=== PATIENT | male | born 1950 | race Two or more races ===

== ENCOUNTER 2016-05-17 05:52 | Inpatient (IN) | payer MEDICARE, OTHER ==
[~2016-05-17] VITALS: Ht 152.4 cm; Wt 114.3 kg
[~2016-05-17 05:52] MED LIST: BP PILL
[2016-05-17] MEDS ORDERED: KETOROLAC TROMETHAMINE INJ 30 MG/ML VIAL ONE (06:06)
[2016-05-17] MEDS ORDERED: BUPIVACAINE MPF 0.5% W/EPI INJ 30 ML VIAL ONE (06:06)
[2016-05-17] MEDS ORDERED: BACITRACIN 50000 UNITS/VIAL ONE (06:06)
[2016-05-17] MEDS ORDERED: TRAM50TA2 PO (06:44)
[2016-05-17] MEDS ORDERED: HYDR-548 PO (06:44)
[2016-05-17 07:51] VITALS: BP 127/91
[2016-05-17] MEDS ORDERED: NEEDLELESS EST SET LARGE BORE 1 EA INFUS.SET MC ONE (07:58)
[2016-05-17] MEDS ORDERED: SECONDARY IV SET 1 EA INFUS.SET MC ONE ×2 (07:58→16:43)
[2016-05-17] MEDS ORDERED: IV SET PRIMARY 1 EA INFUS.SET MC ONE (07:58)
[2016-05-17] MEDS ORDERED: IV NS 0.9% 1,000 ML ONE (07:58)
[2016-05-17] MEDS ORDERED: TRANEXAMIC ACID 3,000 MG in SODIUM CHLORIDE IRRIG SOLUTION 70 ML IR ONE (08:30)
[2016-05-17] MEDS ORDERED: MIDAZOLAM HCL 2 MG/2ML VIAL ONE ×3 (08:41→09:25)
[2016-05-17] MEDS ORDERED: MORPHINE SULFATE/PF 10 MG/10ML (1MG/ML) AMPUL ONE (08:41)
[2016-05-17] MEDS ORDERED: COLACE 250 MG CAPSULE PO PRN (11:30)
[2016-05-17] MEDS ORDERED: ZOFRAN 4mg/2ML IV PRN (11:30)
[2016-05-17] MEDS ORDERED: DULCOLAX 10 MG/SUPP.RECT RC PRN (11:30)
[2016-05-17] MEDS ORDERED: NALOXONE HCL 0.4 MG/ML AMPUL IV PRN ×2 (11:30→16:30)
[2016-05-17] MEDS ORDERED: AMBIEN 5 MG TABLET PO PRN (11:30)
[2016-05-17] MEDS ORDERED: diphenhydrAMINE HCL 50 MG/ML VIAL IM PRN ×2 (11:30→16:30)
[2016-05-17] MEDS ORDERED: HYDROCODONE/APAP 5/325MG 1 EACH TABLET PO PRN (11:30)
[2016-05-17] MEDS ORDERED: IV D5/0.45 NACL 1,000 ML IV PRN (11:30)
[2016-05-17] MEDS ORDERED: TYLENOL 650 MG TABLET PO PRN (11:30)
[2016-05-17] MEDS ORDERED: SENOKOT 8.6 MG TABLET PO PRN (11:30)
--- NOTE | 2016-05-17 11:30 | NUR ---
ADMITTED FORM DAY SURGERY ROOM AFTER LT TKA. PT. AWAKE, ALERT AND ORIENTED X4. DENIED PAIN AND SOB. O2@ 2L VIA NC. APPLIED TELE MONITOR. CONTROLLED A-FIB. VS STABLE. DRESSING IS DRY AND INTACT. RT WRIST HL # 18G. WILL CHECK VS Q15MIN.SIDE RAILS UP. CALL LIGHT WITHIN REACH. MONITOR CLOSELY.
[2016-05-17 11:45] VITALS: BP 118/62
[2016-05-17 12:00] VITALS: BP 118/62
[2016-05-17] MEDS ORDERED: IV SET PRIMARY PUMP SET 1 EA INFUS.SET MC ONE (12:20)
--- NOTE | 2016-05-17 12:40 | NUR ---
APPLIED CPM MACHINE. ENCOURAGED INCENTIVE SPIROMETER.
--- NOTE | 2016-05-17 14:00 | NUR ---
PT. AWAKE, ALERT AND ORIENTED X4. SAO2 >95%. SINUS ARHYTHMIA ON THE MONITOR. DENIED PAIN ON LT LEG. CONTINUE CPM MACHINE.
[2016-05-17 16:00] VITALS: BP 131/76
[2016-05-17] MEDS ORDERED: ZOLPIDEM TARTRATE 5 MG TABLET PO PRN (16:30)
[2016-05-17] MEDS ORDERED: MAG HYDROX/AL HYDROX/SIMETH 30 ML UDC PO PRN (16:30)
[2016-05-17] MEDS ORDERED: HYDROCODONE/APAP 10/325MG 1 EA TABLET PO PRN ×2 (16:30→20:30)
[2016-05-17] MEDS ORDERED: DOCUSATE SODIUM 250 MG CAPSULE PO PRN (16:30)
[2016-05-17] MEDS ORDERED: ONDANSETRON HCL/PF 4 MG/2 ML VIAL IV PRN (16:30)
[2016-05-17] MEDS ORDERED: SENNOSIDES 8.6 MG TABLET PO PRN (16:30)
[2016-05-17] MEDS ORDERED: HYDROMORPHONE 1 MG/1 ML DISP.SYRIN SQ PRN (16:30)
[2016-05-17] MEDS ORDERED: diphenhydrAMINE HCL 25 MG CAPSULE PO PRN (16:30)
[2016-05-17] MEDS ORDERED: BISACODYL SUPP (10 MG) 10 MG/SUPP.RECT SUPP.RECT RC PRN (16:30)
[2016-05-17] MEDS ORDERED: ACETAMINOPHEN 325 MG TABLET PO PRN (16:30)
[2016-05-17] MEDS ORDERED: CLONIDINE HCL 0.1 MG TABLET PO PRN (16:30)
[2016-05-17] MEDS: ANCEF 1 G in IV D5W 50 ML IV SCH (16:47)
[2016-05-17] MEDS: RIVAROXABAN 10 MG TABLET PO SCH (16:48)
--- NOTE | 2016-05-17 18:32 | NUR ---
CLOSING SHIFT PT. AWAKE, ALERT AND ORIENTED X4. DENIED PAIN AND SOB. O2@2L VIA NC. SAO2>96%. ENCOURAGED INCENTIVE SPIROMETER. SINUS ARHYTHMIA ON THE MONITOR. CONTINUE A CPM MACHINE. DRESSING DRY AND INTACT. SIDE RAILS UP. CALL LIGHT WITHIN REACH. MONITOR CLOSELY.
--- NOTE | 2016-05-17 19:30 | NUR ---
MOTORCYCLE POLICE OFFICER INITIAL NOTE RECEIVED PT AWAKE AND ALERT ORIENTED X4, UPPER SORBIAN SPEAKING MOSTLY, S/P LEFT TKA BY DR. DELUNA, HE REPORTS NO PAIN AT THIS MOMENT AND WILL REQUEST PAIN MEDICATION WHEN HE NEEDS IT, CMP MACHINE OFF DURING NIGHT TO ALLOW PT TO SLEEP, NEEDS WILL BE ANTICIPATED AND ATTENDED TO, SAFETY MEASURES WILL BE MAINTAINED AT ALL TIMES, WILL MONITOR HOURLY AND NEEDED.
[2016-05-17 20:00] VITALS: BP 122/84
[2016-05-17] MEDS ORDERED: MAGNESIUM HYDROXIDE 30 ML UDC PO PRN (20:30)
[2016-05-17] MEDS ORDERED: MENTHOL/CETYLPYRD (CEPACOL) 1 LOZ LOZENGE PO PRN (20:30)
[2016-05-17] MEDS: PANTOPRAZOLE 40 MG TABLET.DR PO SCH (21:32)
[2016-05-18] VITALS: BP 120/85
[2016-05-18] MEDS: ANCEF 1 G in IV D5W 50 ML IV SCH (00:57)
[2016-05-18 04:00] VITALS: BP 106/69
--- NOTE | 2016-05-18 06:24 | NUR ---
SEARCH ENGINE OPTIMIZER CLOSING NOTE PT REMAINED STABLE DURING HEEL COVER SOFTENER, NO COMPLAINT OF PAIN OR RESPIRATORY DISTRESS REPORTED DURING NIGHT, PT ABLE TO SLEEP MOST OF THE NIGHT, WILL BE SEEN BY PHYSICAL THERAPY TODAY, PER DOCTOR GAY OK TO REMOVE IQBAL BY AM SHIFT, PT CLEAN/DRY AND COMFORTABLE, ALL NEEDS MET, WILL ENDORSE TO INCOMING NURSE FOR YUN.
--- NOTE | 2016-05-18 07:30 | NUR ---
WAITER/WAITRESS TOURIST CLASS AM NOTES RECEIVED PT AWAKE AND ALERT ORIENTED X4, TAJIK SPEAKING MOSTLY, S/P LEFT TKA BY DR. DELUNA ON 05/17/16, SURGICAL DRESSING IN PLACE, CDI, IMMOBILIZER WHEN OOB OR SITTING, CPM OFF AT NIGHT, DENIES ANY PAIN AT THIS TIME, TELEMETRY READS SR OCC PAC HR 62, LFA 22G HL IN PLACE, FLUSHES WELL, SITE CLEAR. IQBAL CATH IN PLACE, DRAINING ADEQUATE AMOUNT OF YELLOW COLORED URINE. BED LOW LOCKED, SAFETY MEASURES IN PLACE. WILL CONT TO MONITOR. Addendum: 05/18/16 at 1504 by ADOLFO FERNANDO RN ADDENDUM: PATIENT REFUSE IVF AT THIS TIME.
[2016-05-18 08:00] VITALS: BP 110/67
[2016-05-18] MEDS: DOCUSATE SODIUM 100 MG CAPSULE PO SCH ×2 (08:24→16:51)
--- NOTE | 2016-05-18 09:30 | NUR ---
MS RN NOTES ADMINISTERED DUE MEDS. IQBAL CATHETER REMOVED POST OP DAY 1 ORDERED. 200 ML OUTPUT.
[2016-05-18 12:46] LABS: THYROID STIMULATING HORMONE 0.789 uIU/mL (0.358-3.74)
[2016-05-18 16:00] VITALS: BP 150/77
[2016-05-18] MEDS: RIVAROXABAN 10 MG TABLET PO SCH (16:51)
[2016-05-18 18:00] VITALS: BP 150/77
--- NOTE | 2016-05-18 18:31 | NUR ---
MS RN CLOSING NOTES PT RESTING IN BED, AWAKE AND ALERT ORIENTED X4, BELARUSIAN SPEAKING MOSTLY, S/P LEFT TKA BY DR. DELUNA ON 05/17/16, SURGICAL DRESSING IN PLACE, CDI, IMMOBILIZER WHEN OOB OR SITTING, CPM DEFECTIVE, NOT AVAILABLE - PER PHYSICAL THERAPIST THEY ORDERED IT, TO BE DELIVERED TOMORROW, DENIES ANY PAIN AT THIS TIME, LFA 22G HL IN PLACE, FLUSHES WELL, SITE CLEAR. PM CARE DONE, ALL NEEDS MET, BED LOW LOCKED, SAFETY MEASURES IN PLACE. CALL LIGHT WITHIN REACH, WILL ENDORSE TO NEXT SHIFT FOR YUN.
--- NOTE | 2016-05-18 19:30 | NUR ---
MS RN INITIAL NOTE RECEIVED PT AWAKE AND ALERT, ORIENTED X4, NAURUAN SPEAKING MOSTLY, HE REQUESTED FOR A CHANGE IN PAIN MEDICATION STATING THAT TRAMADOL HCL 50MG AND OXYCODONE/ACETAMINOPHEN 10/325MG ARE THE MEDICATIONS THAT WORK BETTER FOR HIM, DOCTOR GAY NOTIFIED, HE WILL INPUT NEW ORDER FOR PT'S PAIN MEDICATION, PT CLEAN/DRY AND COMFORTABLE, SAFETY MEASURES WILL BE MAINTAINED AT ALL TIMES, NEEDS WILL BE ANTICIPATED AND ATTENDED TO DURING HOURLY ROUNDS AND NEEDED.
[2016-05-18 20:00] VITALS: BP 132/97
[2016-05-18] MEDS ORDERED: TRAMADOL HCL 50 MG TABLET PO PRN (20:30)
[2016-05-18] MEDS: HYDROMORPHONE 1 MG/1 ML DISP.SYRIN SQ PRN (21:24)
[2016-05-18] MEDS: PANTOPRAZOLE 40 MG TABLET.DR PO SCH (21:28)
[2016-05-18] MEDS: oxyCODONE IR immediate release 5 MG CAPSULE PO PRN (23:35)
[2016-05-19] MEDS: HYDROMORPHONE 1 MG/1 ML DISP.SYRIN SQ PRN ×3 (03:20→19:59)
--- NOTE | 2016-05-19 06:21 | NUR ---
MS RN CLOSING NOTE PT REMAINED STABLE DURING [facility] ATTENDANT, NO SIGNIFICANT CHANGE IN CONDITION NOTED, PT SLEPT INTERMITTENTLY DURING NIGHT, PAIN MEDICATION WAS CHANGED BY DR. RASHID TO DILAUDID 1MG Q3HRS AND OXYCONTIN IR 10MG Q3HRS, MEDICATION WAS EFFECTIVE IN ALLEVIATING PAIN, DRESSING CHANGED BY DR DELUNA'S TOPPER PRESS OPERATOR AUTOMATIC THIS AM, PT IS CLEAN/DRY AND COMFORTABLE, SAFETY MEASURES OBSERVED AT ALL TIMES, WILL ENDORSE TO INCOMING NURSE FOR YUN.
[2016-05-19 06:48] LABS: BASOPHILS % (AUTO) 0.1 % (0.0-2.0); EOSINOPHILS % (AUTO) 0.4 % (0.0-6.0); HEMATOCRIT 36 % (39-51); HEMOGLOBIN 11.9 g/dL (13.5-17.5); LYMPHOCYTES # (AUTO) 1.8 /CMM (0.8-4.8); LYMPHOCYTES % (AUTO) 18.9 % (20.0-44.0); MEAN CORPUSCULAR HEMOGLOBIN 29 PG (26.0-33.0); MEAN CORPUSCULAR HGB CONC 34 g/dl (31.0-36.0); MEAN CORPUSCULAR VOLUME 87 fL (80-96); MONOCYTES % (AUTO) 9.7 % (2.0-12.0); NEUTROPHILS # (AUTO) 6.9 /CMM (1.8-8.9); NEUTROPHILS % (AUTO) 70.9 % (43.0-81.0); PLATELET COUNT (AUTO) 218 /CMM (150-450); RDW COEFFICIENT OF VARIATION 14.8 (11.5-15.0); WHITE BLOOD COUNT (AUTO) 9.8 K/uL (4.3-11.0)
[2016-05-19 07:09] LABS: CALCIUM, SERUM 8.4 mg/dL (8.5-10.1); MAGNESIUM 1.6 mg/dL (1.8-2.4); PHOSPHORUS 3.5 mg/dL (2.5-4.9)
--- NOTE | 2016-05-19 07:30 | NUR ---
MS RN AM NOTES RECEIVED PT AWAKE AND ALERT ORIENTED X4, ICELANDIC SPEAKING MOSTLY, S/P LEFT TKA BY DR. DELUNA ON 05/17/16, SURGICAL DRESSING IN PLACE, CHANGED BY CASTING AND CURING OPERATOR EARLY THIS MORNING, IMMOBILIZER WHEN OOB OR SITTING, WITH CPM SCHEDULED, C/O 05/17 PAIN, WILL ADMINISTER PAIN MEDS ORDERED. LFA 22G HL IN PLACE, FLUSHES WELL, SITE CLEAR. AMBULATES WITH WALKER AND WITH ASSIST. BED LOW LOCKED, SAFETY MEASURES IN PLACE. WILL CONT TO MONITOR.
[2016-05-19 08:00] VITALS: BP 126/98
[2016-05-19] MEDS: oxyCODONE IR immediate release 5 MG CAPSULE PO PRN ×2 (08:56→15:37)
[2016-05-19] MEDS: DOCUSATE SODIUM 100 MG CAPSULE PO SCH ×2 (08:56→16:22)
--- NOTE | 2016-05-19 09:30 | NUR ---
MS RN NOTES ADMINISTERED DUE MEDS.
[2016-05-19] MEDS ORDERED: SECONDARY IV SET 1 EA INFUS.SET MC ONE (11:05)
[2016-05-19] MEDS: Magnesium 1GM/D5W 100ML PREMIX 100 ML IV SCH ×2 (11:16→12:26)
--- NOTE | 2016-05-19 11:16 | NUR ---
MS RN NOTES STARTED MAGNESIUM IV BAG #1.
--- NOTE | 2016-05-19 12:26 | NUR ---
MS RN NOTES STARTED MAGNESIUM IV BAG #2.
[2016-05-19 16:00] VITALS: BP_SYST 141; BP_DIAS 112; BP_DIAS 90
--- NOTE | 2016-05-19 16:00 | NUR ---
MS RN NOTES PER CASE MANAGEMENT, PATIENT FOR DC JESSI AND WILL BE PICKED UP BY AMBULANCE AT 1000 TO GO TO [facility] AND WILL STAY THERE FOR 1 WEEK. AND PATIENT AGREED.
[2016-05-19] MEDS: RIVAROXABAN 10 MG TABLET PO SCH (16:23)
[2016-05-19 18:00] VITALS: BP 141/90
--- NOTE | 2016-05-19 19:25 | NUR ---
MS RN CLOSING NOTES PT RESTING IN BED, AWAKE AND ALERT ORIENTED X4, OCCITAN SPEAKING MOSTLY, S/P LEFT TKA BY DR. DELUNA ON 05/17/16, SURGICAL DRESSING IN PLACE, CDI, IMMOBILIZER WHEN OOB OR SITTING, CPM ORDERED, DENIES ANY PAIN AT THIS TIME, LFA 22G HL IN PLACE, FLUSHES WELL, SITE CLEAR. PM CARE DONE, ALL NEEDS MET, BED LOW LOCKED, SAFETY MEASURES IN PLACE. CALL LIGHT WITHIN REACH, WILL ENDORSE TO NEXT SHIFT FOR YUN.
[2016-05-19 20:00] VITALS: BP 153/85
--- NOTE | 2016-05-19 20:00 | NUR ---
patient received alert and oriented x3;chadian speaking;pt c/o left knee pain 10/10-medicated per order;pt on room air with sats >93%;left knee with luz wrap cdi;no distress noted at this time
[2016-05-19] MEDS: PANTOPRAZOLE 40 MG TABLET.DR PO SCH (21:36)
--- NOTE | 2016-05-20 | NUR ---
patient asleep on rounds;no changes in health status noted
--- NOTE | 2016-05-20 01:26 | NUR ---
patient given oxy IR for knee pain;no distress noted
[2016-05-20] MEDS: oxyCODONE IR immediate release 5 MG CAPSULE PO PRN (01:30)
--- NOTE | 2016-05-20 02:36 | NUR ---
HOUSING PROJECT MANAGER INITIAL NOTES GOT REPORT FROM REGISTRY NURSE YEISON FOR CONTINUITY OF CARE. PT CHECKED RESTING AT THIS TIME. WITHOUT ANY ACUTE DISTRESS NOTED AT THIS TIME. IVF STILL INFUSING. KEPT HIM WARM AND COMFORTABLE AT ALL TIMES. WILL CONTINUE TO MONITOR. PLACE CALL LIGHT AT REACH.
[2016-05-20 04:00] VITALS: BP 127/86
--- NOTE | 2016-05-20 07:15 | NUR ---
MS SPLITTING MACHINE OPERATOR CLOSING NOTES PT AWAKE AND ALERT WATCHING TV AT THIS TIME. NOT IN ANY ACUTE DISTRESS OR ANY DISCOMFORT NOTED AT THIS TIME. SLEPT WELL AFTER PAIN MEDS GIVEN. STABLE BARRETT THE NIGHT. PT ALSO AWARE OF POSSIBLE TRANSFERRED TO [facility] TODAY. ENDORSE ALL DUE MEDS GIVEN AND ENDORSE TO AM NURSE FOR CONTINUITY OF CARE. PLACE CALL LIGHT AT REACH.
[2016-05-20 07:30] LABS: CALCIUM, SERUM 8.5 mg/dL (8.5-10.1); MAGNESIUM 2.1 mg/dL (1.8-2.4); POTASSIUM 4.2 mmol/L (3.5-5.1)
--- NOTE | 2016-05-20 07:49 | NUR ---
RN AM NOTES RECEIVED PATIENT ASLEEP, BUT AROUSABLE. WAITING FOR TRANSFER TO [facility] AT 10AM. PREPARING PAPERWORK. WILL CONTINUE TO MONITOR.
[2016-05-20 08:00] VITALS: BP 129/86
[2016-05-20] MEDS: DOCUSATE SODIUM 100 MG CAPSULE PO SCH (09:14)
--- NOTE | 2016-05-20 11:00 | NUR ---
SALES REPRESENTATIVE PUBLICATIONS NOTES PATIENT LEFT IN STABLE CONDITION ACCOMPANIED BY 2 PRIVATE DETECTIVE ON GURNEY TO [facility]. ALL PERSONAL BELONGINGS WITH PATIENT, DISCHARGE PAPERWORK SIGNED AND GIVEN TO PRIVATE DETECTIVE. REPORT GIVEN TO FAVIAN AT [facility], AND ALSO TO PRIVATE DETECTIVE. CALLED DAUGHTER AT WORK, BUT NOT AVAILABLE, ENDORSED TO PRIVATE DETECTIVE TO PLEASE LET NURSE KNOW TO CALL DAUGHTER WHEN AVAILABLE. PATIENT ON AMBULANCE SAFELY.
[2016-05-20 12:36] VITALS: BP 129/86
== END 2016-05-20 11:35 | DRG 470 ==
LOC: DS 05:52 → MED 12:00 → TELE 13:02 → MED 05-18 09:20
PROVIDERS: ADMIT Specialist; ATTEND Internal Medicine
PROC: 0SRD0J9 Replacement of Left Knee Joint with Synthetic Substitute, Cemented, Open Approach (ICD-10-PCS; principal; 2016-05-17 09:33)
DX: M17.0 Bilateral primary osteoarthritis of knee (principal); D68.59 Other primary thrombophilia; E44.1 Mild protein-calorie malnutrition; Z68.42 Body mass index [BMI] 45.0-49.9, adult; E66.9 Obesity, unspecified; I10 Essential (primary) hypertension; Z96.651 Presence of right artificial knee joint
CPT/HCPCS: 36415; 80048-TC; 82962-TC; 83735-TC; 84100-TC; 84439-TC; 84443-TC; 85025-TC; 86850-TC; 86921-TC; 87081-TC; 88305-TC; 88311-TC; 94799-TC; 97001-TC; 97110-TC; 97116-TC; 97530-TC; 97760-TC; A4217; A6402; C1713; J0690; J1100; J1170; J1885; J2250; J2274; J2370; J2704; J3475; J3490; J7030; J7060; L1830; Z7610

== ENCOUNTER 2016-06-28 07:58 | Day surgery (SDC) | payer MEDICARE, OTHER ==
[~2016-06-28 07:58] MED LIST changes: +HYDR-548 PO; +TRAM50TA2 PO
[2016-06-28] MEDS ORDERED: BUPIVACAINE 0.5 % PF 150 MG/30 ML VIAL ONE (09:00)
[2016-06-28] MEDS ORDERED: FENTANYL PF 100MCG/2ML AMPUL ONE (09:18)
== END 2016-06-28 14:14 | disposition home or self-care (01) ==
LOC: DS 07:58
PROVIDERS: ATTEND Specialist
DX: M17.12 Unilateral primary osteoarthritis, left knee (principal)
CPT/HCPCS: 27570; J3010; J3490; Z7610; A6402; J1885; J2704